=== PATIENT | female | born 1985 | race African-American/Black ===

== ENCOUNTER 2022-09-17 07:37 | Emergency (ER) | payer OTHER ==
[~2022-09-17] VITALS: Ht 170.2 cm; Wt 122.5 kg
[2022-09-17] MEDS ORDERED: IBUPROFEN200 MG PO (08:18)
[2022-09-17] MEDS ORDERED: CLEOCIN HCL300 MG PO (08:18)
[2022-09-17] MEDS ORDERED: DOXYCYCLINE HY100 MG PO (08:18)
[2022-09-17] MEDS ORDERED: PROBIOTIC & AC1 EACH PO (08:18)
[2022-09-17] MEDS ORDERED: LIDOCAINE HCL 1% LOCAL INJ 20 ML VIAL ONE (08:28)
== END 2022-09-17 09:00 | disposition home or self-care (01) ==
LOC: FSED 08:07
DX: L02.412 Cutaneous abscess of left axilla (principal); L73.2 Hidradenitis suppurativa
CPT/HCPCS: 10061; 99283; J2001

== ENCOUNTER 2025-06-28 08:18 | Emergency (ER) | payer OTHER, MEDICARE ==
[~2025-06-28] VITALS: Ht 167.6 cm; Wt 124.0 kg
[~2025-06-28 08:18] MED LIST: CLEOCIN HCL300 MG PO; DOXYCYCLINE HY100 MG PO; IBUPROFEN200 MG PO; IBUPROFEN600 MG PO; PROBIOTIC & AC1 EACH PO; ULTRAM 50MG50 MG PO
[2025-06-28] MEDS ORDERED: DOXYCYCLINE HY100 MG PO (08:42)
[2025-06-28] MEDS ORDERED: SPIRONOLACTONE100 MG PO (08:42)
[2025-06-28] MEDS ORDERED: CLEOCIN HCL150 MG PO (09:08)
[2025-06-28 09:18] VITALS: PULSE 90; RESP 18; TEMP 98.2; O2SAT 97
== END 2025-06-28 09:18 | disposition home or self-care (01) ==
LOC: FSED 08:33
DX: L73.2 Hidradenitis suppurativa (principal); L02.412 Cutaneous abscess of left axilla; E28.2 Polycystic ovarian syndrome; E66.9 Obesity, unspecified
CPT/HCPCS: 10060; 99283

== ENCOUNTER 2025-07-15 00:06 | Emergency (ER) | payer OTHER, MEDICARE ==
[~2025-07-15] VITALS: Ht 167.6 cm; Wt 124.7 kg
[~2025-07-15 00:06] MED LIST changes: +CLEOCIN HCL150 MG PO; +SPIRONOLACTONE100 MG PO
[2025-07-15 00:13] VITALS: PULSE 89; RESP 18; TEMP 97.7
[2025-07-15] MEDS ORDERED: ULTRAM 50MG50 MG PO (00:32)
[2025-07-15 00:37] VITALS: BP 185/78; PULSE 89; RESP 18; TEMP 97.7; O2SAT 98
== END 2025-07-15 00:43 | disposition home or self-care (01) ==
LOC: FSED 00:15
DX: L73.2 Hidradenitis suppurativa (principal); E28.2 Polycystic ovarian syndrome; E66.9 Obesity, unspecified
CPT/HCPCS: 99283